=== PATIENT | female | born 1985 | race Hispanic/Latino ===

== ENCOUNTER 2018-12-05 20:35 | Emergency (ER) | payer BC ==
[~2018-12-05] VITALS: Ht 149.9 cm; Wt 64.4 kg
--- OUTSIDE RECORDS SUMMARY | 2018-12-05 20:38 | XMS REPORT | Continuity of Care Document ---
Author Author [facility] [place] Address Unknown Phone Unavailable Care Team Providers Care Space Sciences Director Name Role Phone Tommie SALMERON, Lola AVENDAÑO Unavailable Encounters Encounter Performer Location Date Office Visit Lola Reilly MD [facility] [place] - [facility] Feb 19, 2012 Allergies, Adverse Reactions, Alerts Type Substance Reaction Status Drug allergy TRAMADOL Active Problems Problem Effective Dates Problem Status CELLULITIS AND ABSCESS OF OTHER SPECIFIED SITE Feb 19, 2012 Active Procedures Date Description Comments Feb 19, 2012 smoking status current Feb 19, 2012 genitourinary review of systems, E&M Others: Pain from incision site site ( transverse suprapubic) Medications Medication Instructions Start Date Status CELEXA 10 MG TABS Daily Feb 19, 2012 Active VALIUM 5 MG TABS Daily Feb 19, 2012 Active BACTRIM DS 800-160 MG TABS 1 PO BID Feb 19, 2012 Active Vital Signs Date Description Test Result Feb 19, 2012 height E&M - 8302-2 HEIGHT 58 in Feb 19, 2012 weight E&M - 3141-9 WEIGHT 150.80 lb Feb 19, 2012 respiratory rate E&M - 9279-1 RESP RATE 18 /min Feb 19, 2012 temperature E&M TEMPERATURE 98.5 deg f Feb 19, 2012 blood pressure, systolic - 8480-6 BP SYSTOLIC 105 mm Hg Feb 19, 2012 blood pressure, diastolic - 8462-4 BP DIASTOLIC 64 mm Hg Feb 19, 2012 pulse rate E&M - 8867-4 PULSE RATE 96 /min
--- OUTSIDE RECORDS SUMMARY | 2018-12-05 20:38 | XMS REPORT ---
Author Author [facility] Address Unknown Phone Unavailable Care Team Providers Care Assembly Line Machine Operator Name Role Phone Unavailable Unavailable Problems This patient has no known problems. Allergies, Adverse Reactions, Alerts This patient has no known allergies or adverse reactions. Medications This patient has no known medications. Encounters Start Date/Time End Date/Time Encounter Type Admission Type Attending [facility] Care Department Encounter ID 2018-11-17 12:18:00 2018-11-17 12:18:00 Emergency E [id number] 2018-11-16 17:01:00 2018-11-16 17:01:00 Emergency E [id number] 2018-10-29 01:43:00 2018-10-29 01:43:00 Emergency E [id number]
--- OUTSIDE RECORDS SUMMARY | 2018-12-05 20:38 | XMS REPORT | Continuity of Care Document ---
Author Author [facility] [place] Address Unknown Phone Unavailable Care Team Providers Care Welder Tack Name Role Phone Tommie SALMERON, Lola AVENDAÑO Unavailable Encounters Encounter Performer Location Date Lab Report Lola Reilly MD [facility] [place] - [facility] Feb 08, 2012 Allergies, Adverse Reactions, Alerts Type Substance [...]
--- OUTSIDE RECORDS SUMMARY | 2018-12-05 20:38 | XMS REPORT | Continuity of Care Document ---
Author Author [facility] [place] Address Unknown Phone Unavailable Care Team Providers Care Feed House Supervisor Name Role Phone Gerardo Moran MD, PP Unavailable Insurance Providers Payer name Policy type / Coverage type Policy ID Covered constitution party ID Policy [facility] F[facility]U Encounters Encounter Performer Location Date Lab Report Gerardo Moran MD [facility] Apr 30, 2013 Allergies, Adverse Reactions, Alerts Type Substance Reaction Status Drug allergy TRAMADOL Active Problems Problem Effective Dates Problem Status CELLULITIS AND ABSCESS OF OTHER SPECIFIED SITE Feb 19, 2012 Active Procedures Date Description Comments Feb 19, 2012 smoking status current Medications Medication Instructions Start Date Status CELEXA [...]
--- OUTSIDE RECORDS SUMMARY | 2018-12-05 20:38 | XMS REPORT | Continuity of Care Document ---
Author Author [facility] [place] Address Unknown Phone Unavailable Care Team Providers Care Switch Technician Name Role Phone Gerardo Moran MD, PP Unavailable Encounters Encounter Performer Location Date Lab Report Gerardo Moran MD [facility] [place] - [facility] Feb 08, 2012 Allergies, Adverse Reactions, Alerts [...]
--- OUTSIDE RECORDS SUMMARY | 2018-12-05 20:39 | XMS REPORT | Clinical Summary ---
Author Author [facility]ang [facility]anda[facility] Organization [facility] Address Unknown Phone Unavailable Care Team Providers Care Template Fitter Name Role Phone Mohit Jaime MD PCP Allergies Comments Active Allergy Reactions Severity Noted Date Seafood only makes her sleepy, no real allergy per patient Other Food 09/21/2016 Medications End Date Status Medication Sig Dispensed Refills Start Date Active pregabalin (LYRICA) 75 MG Take 75 mg by 0 capsule mouth 2 (two) times a day. 05/09/2018 Discontinued HYDROcodone-acetaminophen Take 0.5 0 (NORCO) 10-325 mg per tablets by tablet mouth every 6 (six) hours as needed for moderate pain. 05/09/2018 Discontinued metFORMIN (GLUCOPHAGE) Take 500 mg 0 500 mg tablet by mouth 2 (two) times a day with meals. 12/17/2017 metroNIDAZOLE (FLAGYL) Take 1 tablet 14 tablet 0 500 MG tablet (500 mg 8 total) by mouth 2 (two) times a day for 7 days. 01/09/2018 dicyclomine (BENTYL) 20 Take 1 tablet 20 tablet 0 mg tablet (20 mg total) 8 by mouth 2 (two) times a day as needed (abdominal pain) for up to 30 days. 04/29/2018 butalbital-acetaminophen- Take 1 tablet 15 tablet 0 caff (ESGIC) 50-325-40 mg by mouth 8 per tablet every 6 (six) hours as needed for headaches for up to 30 days. 05/09/2018 Discontinued clonAZEPAM (KlonoPIN) 0.5 Take 0.5 10 tablet 0 MG tablet tablets (0.25 8 mg total) by mouth 2 (two) times a day as needed for anxiety for up to 5 days. 05/14/2018 clonAZEPAM (KlonoPIN) 0.5 Take 0.5 10 tablet 0 MG tablet tablets (0.25 8 mg total) by mouth 2 (two) times a day as needed for anxiety for up to 5 days. 05/25/2018 keTOROlac (TORadol) 10 mg Take 1 tablet 20 tablet 0 tablet (10 mg total) 8 by mouth every 6 (six) hours as needed for moderate pain for up to 5 days. Active Problems Problem Noted Date Exertional chest pain 05/09/2018 Acute cholecystitis due to biliary calculus 09/07/2017 Encounters Care Team Description Date Type Specialty Morenita Peterson MD Chest pain, unspecified type (Primary Dx); Anxiety 05/20/2018 Emergency Emergency Medicine Shaila Covington DO Jabbour, Joseph Michel, DO Exertional chest pain (Primary Dx) 05/09/2018 Emergency General Internal Medicine Shaila Covington DO 05/09/2018 Hospital Radiology Encounter Abby Vitale MD 03/30/2018 Hospital Radiology Encounter Abby Vitale MD Headache in front of head (Primary Dx) 03/30/2018 Emergency Emergency Medicine Aj Morocho MD Pain of upper abdomen (Primary Dx) 01/01/2018 Emergency Emergency Medicine Abby Vitale MD 12/10/2017 Hospital Radiology Encounter Abby Vitale MD Generalized abdominal pain (Primary Dx); Cyst of left ovary; Bacterial vaginosis 12/09/2017 Emergency Emergency Medicine - 12/10/2017 after 12/04/2017 Immunizations Name Dates Previously Given Next Due FLUCELVAX QUAD PF (0.5mL 05/09/2018 syringe) Social History Date Tobacco Use Types Packs/Day Years Used Current Some Day Smoker Smokeless Tobacco: Never Used Alcohol Use Drinks/Week oz/Week Comments Yes occasional Sex Assigned at Date Recorded Not on file Industry Job Start Date Occupation Not on file Not on file Not on file Travel End Travel History Travel Start No recent travel history available. Last Filed Vital Signs Time Taken Vital Sign Reading 05/20/2018 7:00 PM CDT Blood Pressure 114/62 05/20/2018 7:00 PM CDT Pulse 63 05/20/2018 6:45 PM CDT Temperature 36.9 C (98.5 F) 05/20/2018 7:00 PM CDT Respiratory Rate 24 05/20/2018 7:00 PM CDT Oxygen Saturation 98% - Inhaled Oxygen - Concentration 05/09/2018 2:50 AM CDT Weight 67.5 kg (148 lb 14.4 oz) 05/20/2018 5:46 PM CDT Height 149.9 cm (4' 11") 05/09/2018 2:50 AM CDT Body Mass Index 30.07 Plan of Treatment Health Maintenance Due Date Last Done Comments CERVICAL CANCER SCREENING 2008 INFLUENZA VACCINE 03/02/2019 05/09/2018, 04/23/2015 Procedures Comments Procedure Name Priority Date/Time Associated Diagnosis ECG ED PRELIMINARY Routine 05/20/2018 INTERPRETATION 7:34 PM CDT XR CHEST 2 VW STAT 05/20/2018 6:33 PM CDT ESTIMATED GFR STAT 05/20/2018 6:00 PM CDT HC COMPLETE BLD COUNT STAT 05/20/2018 W/AUTO DIFF 6:00 PM CDT CREATINE KINASE, TOTAL STAT 05/20/2018 (CPK) 6:00 PM CDT TROPONIN STAT 05/20/2018 6:00 PM CDT BASIC METABOLIC PANEL STAT 05/20/2018 6:00 PM CDT ECG 12-LEAD STAT 05/20/2018 5:49 PM CDT THYROID STIMULATING Routine 05/09/2018 HORMONE 10:10 AM CDT D-DIMER STAT 05/09/2018 10:10 AM CDT ECG 12-LEAD Routine 05/09/2018 8:28 AM CDT TROPONIN Timed 05/09/2018 7:40 AM CDT TROPONIN Routine 05/09/2018 3:38 AM CDT ESTIMATED GFR Routine 05/09/2018 3:38 AM CDT COMPREHENSIVE METABOLIC Routine 05/09/2018 PANEL 3:38 AM CDT HC COMPLETE BLD COUNT Routine 05/09/2018 W/AUTO DIFF 3:38 AM CDT LIPID PANEL Routine 05/09/2018 3:38 AM CDT ECG 12-LEAD Routine 05/09/2018 3:35 AM CDT HCG QUALITATIVE, URINE STAT 05/09/2018 SCREEN 1:08 AM CDT XR CHEST 1 VW PORTABLE STAT 05/09/2018 12:46 AM CDT ESTIMATED GFR STAT 05/09/2018 12:25 AM CDT TROPONIN, I-STAT STAT 05/09/2018 12:25 AM CDT CREATINE KINASE, TOTAL STAT 05/09/2018 (CPK) 12:25 AM CDT PROTHROMBIN TIME WITH STAT 05/09/2018 INR, I-STAT 12:25 AM CDT COMPREHENSIVE METABOLIC STAT 05/09/2018 PANEL 12:25 AM CDT HC COMPLETE BLD COUNT STAT 05/09/2018 W/AUTO DIFF 12:25 AM CDT ECG ED PRELIMINARY Routine 05/09/2018 INTERPRETATION 12:19 AM CDT ECG 12-LEAD STAT 05/09/2018 12:[address] HEAD WO CONTRAST STAT 03/30/2018 7:38 PM CDT HCG QUALITATIVE, URINE STAT 03/30/2018 SCREEN 7:20 PM CDT HCG QUALITATIVE, URINE STAT 01/01/2018 SCREEN 2:25 AM CDT URINALYSIS STAT 01/01/2018 2:25 AM CDT ZZESTIMATED GFR STAT 01/01/2018 2:10 AM CDT AMYLASE LEVEL STAT 01/01/2018 2:10 AM CDT COMPREHENSIVE METABOLIC STAT 01/01/2018 PANEL 2:10 AM CDT HC COMPLETE BLD COUNT STAT 01/01/2018 W/AUTO DIFF 2:[address] ABDOMEN PELVIS W STAT 12/10/2017 CONTRAST 12:51 AM CDT US PELVIC TRANSVAGINAL STAT 12/09/2017 11:29 PM CDT US PELVIC TRANSABDOMINAL STAT 12/09/2017 11:29 PM CDT CHLAMYDIA BY PROBETEC Routine 12/09/2017 10:15 PM CDT GC BY PROBETEC Routine 12/09/2017 10:15 PM CDT WET PREP Routine 12/09/2017 10:15 PM CDT ZZESTIMATED GFR STAT 12/09/2017 9:55 PM CDT AMYLASE LEVEL STAT 12/09/2017 9:55 PM CDT COMPREHENSIVE METABOLIC STAT 12/09/2017 PANEL 9:55 PM CDT HC COMPLETE BLD COUNT STAT 12/09/2017 W/AUTO DIFF 9:55 PM CDT HCG QUALITATIVE, URINE STAT 12/09/2017 SCREEN 9:40 PM CDT URINALYSIS STAT 12/09/2017 9:40 PM CDT after 12/04/2017 Results * ECG ED Preliminary Interpretation - NOT AN ORDER (05/20/2018 7:34 PM CDT) Only the most recent of 2 results within the time period is included. Narrative Performed At Morenita Peterson MD 05/20/20189:35 PM ECG ED Preliminary Interpretation - Not an Order Performed by: MORENITA PETERSON Authorized by: MORENITA PETERSON ECG reviewed by ED Physician in the absence of a electrophysiology technologist: yes Interpretation: Interpretation: normal Interpretation comment:NSR Rate: ECG rate:65 bpm ECG rate assessment: normal Rhythm: Rhythm: sinus rhythm Ectopy: Ectopy: none QRS: QRS axis:Normal QRS intervals:Normal (92 ms) Conduction: Conduction: normal ST segments: ST segments:Normal T waves: T waves: normal Comments: MD interval: 166 ms QT/QTc: 384/399 ms * XR Chest 2 Vw (05/20/2018 6:33 PM CDT) Narrative Performed At EXAMINATION:XR CHEST 2 VW RADIANT CLINICAL HISTORY:chest pain COMPARISON:May 09, 2018 IMPRESSION: The lungs are clear. The heart is not enlarged. The bony structures are within normal limits. [facility]-[id number] Procedure Note Hm Interface, Radiology Results Incoming - 05/20/2018 6:38 PM CDT EXAMINATION: XR CHEST 2 VW CLINICAL HISTORY: chest pain COMPARISON: May 09, 2018 IMPRESSION: The lungs are clear. The heart is not enlarged. The bony structures are within normal limits. [facility]-[id number] Performing Organization Address City/[facility]/Zipcode Phone Number [facility] [address] [facility] [place] [address] * Estimated GFR (05/20/2018 6:00 PM CDT) Only the most recent of 3 results within the time period is included. Estimated GFR >=90 mL/min/1.73 m2 [facility] DEPARTMENT OF Comment: PATHOLOGY AND CatergoryUnitsInte GENOMIC MEDICINE rpretation G1 >=90 Normal or high G2 60-89Mildly decreased G5m13-16 Mildly to moderately decreased [id number] Moderately to severely decreased G4 15-29Severely decreased G5 <15Kidney failure The eGFR was calculated using the Chronic Kidney Disease Epidemiology Collaboration (CKD-EPI) equation. Interpretation is based on recommendations of the National Kidney Foundation-Kidney Disease Outcomes Quality Initiative (NKF-KDOQI) published in 2014. Specimen Plasma specimen Performing Organization Address City/State/Zipcode Phone Number [facility] [phone] [place] [address] PATHOLOGY AND GENOMIC MEDICINE * Troponin (05/20/2018 6:00 PM CDT) Only the most recent of 3 results within the time period is included. Troponin <0.10 0.00 - 0.10 ng/mL [facility] DEPARTMENT OF Comment: PATHOLOGY AND 0.11 - 1.49 GENOMIC MEDICINE ng/mlMay indicate increased risk of acute coronary syndrome. >=1.5 ng/ml Consistent with acute myocardial infarction. The diagnostic value of a single normal or non-diagnostic result is questionable.Serial samples at 2-6 hour intervals are required to rule out acute myocardial injury. Specimen Plasma specimen Performing Organization Address City/State/Zipcode Phone [place] [facility] [place] [address] [place] [address] PATHOLOGY AND GENOMIC MEDICINE * CBC with platelet and differential (05/20/2018 6:00 PM CDT) Only the most recent of 5 results within the time period is included. WBC 13.17 (H) 4.50 - 11.00 k/uL [facility] DEPARTMENT OF PATHOLOGY AND GENOMIC MEDICINE RBC 4.22 4.20 - 5.50 m/uL [facility] DEPARTMENT OF PATHOLOGY AND GENOMIC MEDICINE HGB 11.7 (L) 12.0 - 16.0 g/dL [facility] DEPARTMENT OF PATHOLOGY AND GENOMIC MEDICINE HCT 35.6 (L) 37.0 - 47.0 % [facility] DEPARTMENT OF PATHOLOGY AND GENOMIC MEDICINE MCV 84.4 82.0 - 100.0 fL [facility] DEPARTMENT OF PATHOLOGY AND GENOMIC MEDICINE MCH 27.7 27.0 - 34.0 pg [facility] DEPARTMENT OF PATHOLOGY AND GENOMIC MEDICINE MCHC 32.9 31.0 - 37.0 g/dL [facility] DEPARTMENT OF PATHOLOGY AND GENOMIC MEDICINE RDW - SD 43.4 37.0 - 55.0 fL [facility] DEPARTMENT OF PATHOLOGY AND GENOMIC MEDICINE MPV 9.2 8.8 - 13.2 fL [facility] DEPARTMENT OF PATHOLOGY AND GENOMIC MEDICINE Platelet count 307 150 - 400 k/uL [facility] DEPARTMENT OF PATHOLOGY AND GENOMIC MEDICINE Neutrophils 61.2 39.0 - 69.0 % [facility] DEPARTMENT OF PATHOLOGY AND GENOMIC MEDICINE Lymphocytes 28.4 25.0 - 45.0 % [facility] DEPARTMENT OF PATHOLOGY AND GENOMIC MEDICINE Monocytes 6.6 0.0 - 10.0 % [facility] DEPARTMENT OF PATHOLOGY AND GENOMIC MEDICINE Eosinophils 2.7 0.0 - 5.0 % [facility] DEPARTMENT OF PATHOLOGY AND GENOMIC MEDICINE Basophils 0.6 0.0 - 1.0 % [facility] DEPARTMENT OF PATHOLOGY AND GENOMIC MEDICINE Immature granulocytes 0.5 0.0 - 1.0 % [facility] DEPARTMENT OF PATHOLOGY AND GENOMIC MEDICINE Specimen Blood Performing Organization Address City/[facility]/Zipcode Phone Number [facility] [place]MENT [place] [id number] [place] [address] PATHOLOGY AND GENOMIC MEDICINE * Creatine kinase, total (CPK) (05/20/2018 6:00 PM CDT) Only the most recent of 2 results within the time period is included. Creatine kinase 88 35 - 200 U/L [facility] DEPARTMENT OF PATHOLOGY AND GENOMIC MEDICINE Specimen Plasma specimen Performing Organization Address [facility] Phone Number [facility] DEPARTMENT [place] [address] PATHOLOGY AND GENOMIC MEDICINE * Basic metabolic panel (05/20/2018 6:00 PM CDT) Sodium 139 135 - 148 mEq/L [facility] DEPARTMENT OF PATHOLOGY AND GENOMIC MEDICINE Potassium 3.6 3.5 - 5.0 mEq/L [facility] DEPARTMENT OF PATHOLOGY AND GENOMIC MEDICINE Chloride 103 99 - 109 mEq/L [facility] DEPARTMENT OF PATHOLOGY AND GENOMIC MEDICINE CO2 24 24 - 31 mEq/L [facility] DEPARTMENT OF PATHOLOGY AND GENOMIC MEDICINE Anion gap 12@ANIO 7 - 15 mEq/L [facility] DEPARTMENT OF PATHOLOGY AND GENOMIC MEDICINE BUN 10 8 - 24 mg/dL [facility] DEPARTMENT OF PATHOLOGY AND GENOMIC MEDICINE Creatinine 0.50 0.50 - 0.90 mg/dL [facility] DEPARTMENT OF PATHOLOGY AND GENOMIC MEDICINE Glucose 99 65 - 99 mg/dL [facility] DEPARTMENT OF PATHOLOGY AND GENOMIC MEDICINE Calcium 9.4 8.6 - 10.6 mg/dL [facility] DEPARTMENT OF PATHOLOGY AND GENOMIC MEDICINE Specimen Plasma specimen Performing Organization Address [facility] Phone Number [facility] [place]MENT [place] [id number] [place] [address] PATHOLOGY AND GENOMIC MEDICINE * ECG 12 lead (05/20/2018 5:49 PM CDT) Only the most recent of 4 results within the time period is included. Ventricular rate 65 [facility] Atrial rate 65 [facility] MD interval 166 [facility] QRSD interval 92 [facility] QT interval 384 [facility] QTC interval 399 [facility] P axis 1 37 [facility] QRS axis 1 -16 [facility] T wave axis 30 [facility] EKG impression Normal sinus rhythm-Normal [facility] MUSE ECG-In automated comparison with ECG of 09-MAY-2018 08:28,-No significant change was found- Performing Organization Address City/State/Zipcode Phone Number [facility] MUSE [address] [place] [address] * D-dimer (05/09/2018 10:10 AM CDT) D-dimer 0.35 0.00 - 0.40 ug/mL FEU [facility] DEPARTMENT OF Comment: PATHOLOGY AND Units are ug/ml Fibrinogen Andigilog [facility] Equivalent Unit. When combined with low clinical probability, D-dimer results of less than 0.5 ug/ml FEU have a good negativepredictive value in excluding PE or DVT. For D-dimer results greater than 0.5ug/ml FEU further testing is indicated if PE or DVT is suspectedclinically. Elevated D-dimer results have been reported in DVT, PE, and DIC cases and may indicate the presence of a clot. D-dimer results may be elevated due to old age, , inflammatory diseases, trauma, post-operative states, sepsis, and malignancies. Specimen Blood Performing Organization Address City/[facility] Centercode Phone Number [facility] [place] [address] [address] [place] [address] PATHOLOGY AND Andigilog MEDICINE * Thyroid stimulating hormone (05/09/2018 10:10 AM CDT) TSH 0.88 0.55 - 4.78 uIU/mL [facility] DEPARTMENT OF PATHOLOGY AND And[employer]ilog MEDICINE Specimen Serum Performing Organization Address [facility] Cent[facility]oid Phone Number [facility] [place] [id number] [place] [address]. [place] [id number] PATHOLOGY AND Andigilog MEDICINE * Lipid panel (05/09/2018 3:38 AM CDT) Cholesterol 107 50 - 200 mg/dL [facility] DEPARTMENT OF PATHOLOGY AND [employer] MEDICINE Triglycerides 109 50 - 150 mg/dL [facility] DEPARTMENT OF PATHOLOGY AND And[employer]ilog MEDICINE HDL cholesterol 33 (L) 40 - 60 mg/dL [facility] DEPARTMENT OF PATHOLOGY AND GENOMIC MEDICINE LDL cholesterol 64Comment: Result obtained by mg/dL [facility] DEPARTMENT OF direct LDL measurement PATHOLOGY AND And[employer] MEDICINE Lipid panel See below [facility] DEPARTMENT OF interpretation Comment: PATHOLOGY AND Total Cholesterol GENOMIC MEDICINE (mg/dL) LDL Cholesterol (mg/dL) <200 Desirable <100 Optimal 200-239Borderline -[id number] 29Near or above optimal >=240High 130-159Borderline- high 160-189High >=190Very high HDL Cholesterol (mg/dL) Triglycerides (mg/dL) <40Low <150 Normal >=60 High 150-199Borderline- high 200-499High >=500Very high Risk Catergories that modify LDL goals. Risk Catergories LDL goal (mg/dL) CHD and CHD risk equivalent <100 (10-year risk >20%) Multiple (2+) risk factors <130 (10-year risk=<20%) 0-1 risk factors <160 (<10-year risk) Defining levels of lipids in metabolic syndrome Triglycerides >=150 mg/dL HDL Cholesterol Men <40 mg/dL Women <50 mg/dL Non-HDL cholesterol is a second target for therapy in persons with high triglycerides (>=200 mg/dL) Specimen Plasma specimen Performing Organization Address City/State/Zipcode Phone [place] [facility] [place] [place] [address] [place] [address] PATHOLOGY AND Andigilog MEDICINE * Comprehensive metabolic panel (05/09/2018 3:38 AM CDT) Only the most recent of 4 results within the time period is included. Sodium 140 135 - 148 mEq/L [facility] PATHOLOGY AND GENOMIC MEDICINE Potassium 3.4 (L) 3.5 - 5.0 mEq/L [facility] PATHOLOGY AND GENOMIC MEDICINE Chloride 107 99 - 109 mEq/L [facility] PATHOLOGY AND GENOMIC MEDICINE CO2 22 (L) 24 - 31 mEq/L [facility] PATHOLOGY AND GENOMIC MEDICINE Anion gap 11@ANIO 7 - 15 mEq/L [facility] PATHOLOGY AND GENOMIC MEDICINE BUN 7 (L) 8 - 24 mg/dL [facility] PATHOLOGY AND GENOMIC MEDICINE Creatinine 0.50 0.50 - 0.90 mg/dL [facility] PATHOLOGY AND GENOMIC MEDICINE Glucose 116 (H) 65 - 99 mg/dL [facility] PATHOLOGY AND GENOMIC MEDICINE Calcium 8.0 (L) 8.6 - 10.6 mg/dL [facility] PATHOLOGY AND GENOMIC MEDICINE Protein 6.2 (L) 6.3 - 8.2 g/dL [facility] PATHOLOGY AND GENOMIC MEDICINE Albumin 2.9 (L) 3.5 - 5.0 g/dL [facility] PATHOLOGY AND GENOMIC MEDICINE A/G ratio 0.9 0.7 - 3.8 [facility] PATHOLOGY AND GENOMIC MEDICINE Alkaline phosphatase 39 30 - 115 U/L [facility] OF PATHOLOGY AND GENOMIC MEDICINE AST 44 15 - 46 U/L [facility] PATHOLOGY AND GENOMIC MEDICINE ALT 21 10 - 55 U/L [facility] PATHOLOGY AND Andigilog MEDICINE Total bilirubin <0.3 0.2 - 1.2 mg/dL [facility] DEPARTMENT OF PATHOLOGY AND GENOMIC MEDICINE Specimen Plasma specimen Performing Organization Address City/[facility] Phone Number [facility] [place] [phone] [place] [address] PATHOLOGY AND GENOMIC MEDICINE * hCG qualitative, urine screen (05/09/2018 1:08 AM CDT) Only the most recent of 4 results within the time period is included. hCG qualitative, urine NegativeComment: Sensitivity DEPARTMENT OF of HCG test: 25 mIU/mL PATHOLOGY AND [facility]IN[facility] Specimen Urine Performing Organization Address [facility] [place] [address] [address] [place] [address] PATH[facility] * XR Chest 1 Vw Portable (05/09/2018 12:46 AM CDT) Narrative Performed At Examination:XR CHEST 1 VW PORTABLE RADIANT Clinical History:chest pain Comparison: None. Technique: Single frontal view of the chest is obtained. Findings: The lungs are free of infiltrate. The heart size is normal. No pleural effusion is seen. Impression: No active cardiopulmonary disease identified. [facility]-[id number] Procedure Note Interface, Radiology Results Incoming - 05/09/2018 12:53 AM CDT Examination: XR CHEST 1 VW PORTABLE Clinical History: chest pain Comparison: None. Technique: Single frontal view of the chest is obtained. Findings: The lungs are free of infiltrate. The heart size is normal. No pleural effusion is seen. Impression: No active cardiopulmonary disease identified. [facility]-[id number] Performing Organization Address [facility] Phone Number [facility] [address] [place] [address] * Troponin, I-Stat (05/09/2018 12:25 AM CDT) Troponin, I-Stat 0.00 0.00 - 0.08 ng/mL DEPARTMENT OF Comment: PATHOLOGY AND 0.09 - 1.49 GENOMIC MEDICINE, [facility] indicate increased risk of EMERGENCY CARE acute CENTER coronary syndrome. >=1.5 ng/ml Consistent with acute myocardial infarction. The diagnostic value of a single normal or non-diagnostic result is questionable.Serial samples at 2-6 hour intervals are required to rule out acute myocardial injury. Specimen Plasma specimen Performing Organization Address [facility]/[place] [address] [address] [place] [address] PATHOLOG[facility] * Prothrombin time with INR, I-Stat (05/09/2018 12:25 AM CDT) POC prothrombin time 17.5 (H) 11.0 - 14.5 sec [facility] POC INR 1.5 DEPARTMENT OF Comment: PATHOLOGY AND The International Normalized GENOMIC MEDICINE, Ratio (INR) is a therapeutic [facility] monitoring tool for patients EMERGENCY CARE who are stable on oral CENTER vitamin K antagonist therapy. An INR of 2.0-3.0 is suggested for deep vein thrombosis/pulmonary embolism. An INR of 2.5-3.5 (high dose) is suggested for some patients with mechanical heart valves) Specimen Blood Performing Organization Address [facility] [place] Number [place] [address] [address] [place] [address] PATH[facility] * CT Head Wo Contrast (03/30/2018 7:38 PM CDT) Narrative Performed At EXAMINATION: CT HEAD WO CONTRAST RADIANT COMPARISON: None CLINICAL HISTORY headache. TECHNIQUE: Non-contrast CT scan of the head with thin-section contiguous transaxial images from the skull base to the vertex. CT scans are performed using radiation dose reduction techniques. Technical factors are evaluated and adjusted to ensure appropriate moderation of exposure. Automated dose management technology is applied to adjust radiation exposure while achieving a highly diagnostic quality image. FINDINGS: Nonenhanced emergency cranial CT was performed at approximately 1950 hours. The ventricles and subarachnoid spaces are mildly dilated. There is no definite acute edema or hemorrhage or mass effect or midline shift or extra-axial lesion. Bone settings demonstrate the calvarium to be intact. There is mucosal thickening in the ethmoid air cells IMPRESSION: Mild age-appropriate involutional changes without focal acute abnormalities. Bilateral ethmoid air cells opacified by mucosal thickening. Please correlate clinically for sinusitis. [facility]-[id number] Procedure Note Interface, Radiology Results Incoming - 03/30/2018 7:45 PM CDT EXAMINATION: CT HEAD WO CONTRAST COMPARISON: None CLINICAL HISTORY headache. TECHNIQUE: Non-contrast CT scan of the head with thin-section contiguous transaxial images from the skull base to the vertex. CT scans are performed using radiation dose reduction techniques. Technical factors are evaluated and adjusted to ensure appropriate moderation of exposure. Automated dose management technology is applied to adjust radiation exposure while achieving a highly diagnostic quality image. FINDINGS: Nonenhanced emergency cranial CT was performed at approximately 1950 hours. The ventricles and subarachnoid spaces are mildly dilated. There is no definite acute edema or hemorrhage or mass effect or midline shift or extra-axial lesion. Bone settings demonstrate the calvarium to be intact. There is mucosal thickening in the ethmoid air cells IMPRESSION: Mild age-appropriate involutional changes without focal acute abnormalities. Bilateral ethmoid air cells opacified by mucosal thickening. Please correlate clinically for sinusitis. [facility]-[id number] Performing Organization Address City/State/Zipcode Phone Number [facility] [address] [place] [address] * Urinalysis (01/01/2018 2:25 AM CDT) Only the most recent of 2 results within the time period is included. Glucose, UA Negative Negative [facility] Bilirubin, UA Negative Negative [facility] Ketones, UA Negative Negative [facility] Specific gravity, UA 1.015 1.001 - 1.035 [facility] Blood, UA Large (A) Negative [facility] pH, UA 7.0 5.0 - 8.5 [facility] Protein, UA Negative Negative [facility] Urobilinogen, UA <2.0 <2.0 [facility] Nitrite, UA Negative Negative [facility] Leukocyte esterase, UA Negative Negative [facility] Color, UA Yellow [facility] Appearance, UA Clear [facility]OLOG[facility] Specimen Urine Performing Organization Address City/State/[place] [phone] [place] [address] PATHOLOGY [facility] * Estimated GFR (01/01/2018 2:10 AM CDT) Only the most recent of 2 results within the time period is included. GFR Non Af Amer >90 mL/min/1.73 m2 DEPARTMENT OF PATHOLOGY AND GENOMIC MEDICINE, [facility] GFR Af Amer >90 mL/min/1.73 m2 DEPARTMENT OF Comment: PATHOLOGY AND Chronic kidney disease: <60 [facility], mL/min/1.73m2 [facility] Kidney failure: <15 [facility] mL/min/1.73m2 CENTER The estimated GFR is calculated from the IDMS-traceable Modification of Diet in Renal Disease Equation. The accuracy of the calculation is poor when the creatinine is normal. Calculated values >90 mL/min/1.73m2 are not reported. This equation has not been validated in children (<18 years), women, the elderly (>70 years), or ethnic groups other than Caucasians and Americans. Specimen Plasma specimen Performing Organization Address City/State/[place] [phone] [address] PATHOLOGY AND [facility] * Amylase level (01/01/2018 2:10 AM CDT) Only the most recent of 2 results within the time period is included. Amylase 23 14 - 97 U/L [facility] Specimen Plasma specimen Performing Organization Address City/[facility] [place] Number [place] [phone] [address] PATHOLOGY AND [facility] * CT Abdomen Pelvis W Contrast (12/10/2017 12:51 AM CDT) Narrative Performed At CT ABDOMEN PELVIS W CONTRAST RADIANT CLINICAL INDICATION: abdominal pain TECHNIQUE:Multidetector CT imaging of the abdomen and pelvis was performed following the intravenous administration of iodinated contrast with multiplanar reconstructions.CT imaging was performed with iterative reconstruction technique and/or automated exposure control to reduce radiation dose. COMPARISON:04/28/2017. FINDINGS: LOWER THORAX:Clear. LIVER:Normal. BILIARY:There are surgical changes related to cholecystectomy. There is minimal intrahepatic biliary ductal dilation, likely secondary to the postcholecystectomy state. SPLEEN:Normal. PANCREAS:Normal. ADRENALS:Normal. KIDNEYS:No mass or hydronephrosis. GI:Large and small bowel are normal in caliber.There are no inflammatory changes.Appendix is visualized and appears normal. VASCULAR:Unremarkable LYMPH NODES:No enlarged lymph nodes in the abdomen or pelvis. PELVIS:The urinary bladder and uterus are normal in appearance. There is a 2.8 x 1.8 cm cystic lesion within the left ovary. BONES:There are no acute osseous abnormalities. OTHER:There is no ascites or pneumoperitoneum. There is a small, fat-containing ventral hernia. IMPRESSION: No acute intra-abdominal abnormality. [id number] Procedure Note Interface, Radiology Results Incoming - 12/10/2017 1:[address] ABDOMEN PELVIS W CONTRAST CLINICAL INDICATION: abdominal pain TECHNIQUE: Multidetector CT imaging of the abdomen and pelvis was performed following the intravenous administration of iodinated contrast with multiplanar reconstructions. CT imaging was performed with iterative reconstruction technique and/or automated exposure control to reduce radiation dose. COMPARISON: 04/28/2017. FINDINGS: LOWER THORAX: Clear. LIVER: Normal. BILIARY: There are surgical changes related to cholecystectomy. There is minimal intrahepatic biliary ductal dilation, likely secondary to the postcholecystectomy state. SPLEEN: Normal. PANCREAS: Normal. ADRENALS: Normal. KIDNEYS: No mass or hydronephrosis. GI: Large and small bowel are normal in caliber. There are no inflammatory changes. Appendix is visualized and appears normal. VASCULAR: Unremarkable LYMPH NODES: No enlarged lymph nodes in the abdomen or pelvis. PELVIS: The urinary bladder and uterus are normal in appearance. There is a 2.8 x 1.8 cm cystic lesion within the left ovary. BONES: There are no acute osseous abnormalities. OTHER: There is no ascites or pneumoperitoneum. There is a small, fat- containing ventral hernia. IMPRESSION: No acute intra-abdominal abnormality. [id number] Performing Organization Address City/State/Zipcode Phone Number [facility] [address] [place] [address] * US Pelvic Transabdominal (12/09/2017 11:29 PM CDT) Narrative Performed At EXAMINATION:[facility] CLINICAL HISTORY:Pelvic Pain COMPARISON:None. TECHNIQUE:Transabdominal and endovaginal sonographic images of the pelvis were obtained. Grayscale, color Doppler, and spectral waveform analysis of the ovarian vessels was performed. IMPRESSION: Uterus: The uterus is normal in size without focal mass. The uterus measures 8.6 x 3.9 x 5.0 cm in size. Endometrial stripe thickness: 0.5 cm, which is within normal limits. Right ovary: The right ovary measures 3.2 x 2.0 x 2.1 cm in size and demonstrates intraovarian Doppler flow. Left ovary: The left ovary measures 4.2 x 2.5 x 2.5 cm in size and demonstrates intraovarian Doppler flow. There is a 2.4 x 1.7 x 1.9 cm mildly echogenic lesion within the left ovary that shows no evidence of internal flow. This most likely represents a hemorrhagic ovarian cyst or endometrioma. If the patient's symptoms persist, further evaluation with a pelvic MRI or repeat pelvic ultrasound in 6-12 weeks is recommended. There is a small amount of free fluid in the pelvic cul-de-sac. [id number] Procedure Note [facility], Radiology Results Incoming - 12/09/2017 11:53 PM CDT EXAMINATION: US PELVIC TRANSABDOMINAL CLINICAL HISTORY: Pelvic Pain COMPARISON: None. TECHNIQUE:Transabdominal and endovaginal sonographic images of the pelvis were obtained. Grayscale, color Doppler, and spectral waveform analysis of the ovarian vessels was performed. IMPRESSION: Uterus: The uterus is normal in size without focal mass. The uterus measures 8.6 x 3.9 x 5.0 cm in size. Endometrial stripe thickness: 0.5 cm, which is within normal limits. Right ovary: The right ovary measures 3.2 x 2.0 x 2.1 cm in size and demonstrates intraovarian Doppler flow. Left ovary: The left ovary measures 4.2 x 2.5 x 2.5 cm in size and demonstrates intraovarian Doppler flow. There is a 2.4 x 1.7 x 1.9 cm mildly echogenic lesion within the left ovary that shows no evidence of internal flow. This most likely represents a hemorrhagic ovarian cyst or endometrioma. If the patient's symptoms persist, further evaluation with a pelvic MRI or repeat pelvic ultrasound in 6-12 weeks is recommended. There is a small amount of free fluid in the pelvic cul-de-sac. [id number] Performing Organization Address City/State/Zipcode Phone Number [facility] [address] [place] [address] * US Pelvic Transvaginal (12/09/2017 11:29 PM CDT) Narrative Performed At EXAMINATION:[facility] CLINICAL HISTORY:Pelvic Pain COMPARISON:None. TECHNIQUE:Transabdominal and endovaginal sonographic images of the pelvis were obtained. Grayscale, color Doppler, and spectral waveform analysis of the ovarian vessels was performed. IMPRESSION: Uterus: The uterus is normal in size without focal mass. The uterus measures 8.6 x 3.9 x 5.0 cm in size. Endometrial stripe thickness: 0.5 cm, which is within normal limits. Right ovary: The right ovary measures 3.2 x 2.0 x 2.1 cm in size and demonstrates intraovarian Doppler flow. Left ovary: The left ovary measures 4.2 x 2.5 x 2.5 cm in size and demonstrates intraovarian Doppler flow. There is a 2.4 x 1.7 x 1.9 cm mildly echogenic lesion within the left ovary that shows no evidence of internal flow. This most likely represents a hemorrhagic ovarian cyst or endometrioma. If the patient's symptoms persist, further evaluation with a pelvic MRI or repeat pelvic ultrasound in 6-12 weeks is recommended. There is a small amount of free fluid in the pelvic cul-de-sac. [id number] Procedure Note Interface, Radiology Results Incoming - 12/09/2017 11:53 PM CDT EXAMINATION: US PELVIC TRANSVAGINAL CLINICAL HISTORY: Pelvic Pain COMPARISON: None. TECHNIQUE:Transabdominal and endovaginal sonographic images of the pelvis were obtained. Grayscale, color Doppler, and spectral waveform analysis of the ovarian vessels was performed. IMPRESSION: Uterus: The uterus is normal in size without focal mass. The uterus measures 8.6 x 3.9 x 5.0 cm in size. Endometrial stripe thickness: 0.5 cm, which is within normal limits. Right ovary: The right ovary measures 3.2 x 2.0 x 2.1 cm in size and demonstrates intraovarian Doppler flow. Left ovary: The left ovary measures 4.2 x 2.5 x 2.5 cm in size and demonstrates intraovarian Doppler flow. There is a 2.4 x 1.7 x 1.9 cm mildly echogenic lesion within the left ovary that shows no evidence of internal flow. This most likely represents a hemorrhagic ovarian cyst or endometrioma. If the patient's symptoms persist, further evaluation with a pelvic MRI or repeat pelvic ultrasound in 6-12 weeks is recommended. There is a small amount of free fluid in the pelvic cul-de-sac. [id number] Performing Organization Address City/State/Zipcode Phone Number [address] [address] * GC By ProbeTe (12/09/2017 10:15 PM CDT) GC, ProbeTec Negative for Neisseria [facility] DEPARTMENT OF gonorrhoeae. PATHOLOGY AND Comment: GENOMIC MEDICINE Specimen Information Specimen Source: Cervical Specimen Site: Not otherwise specified Specimen Cervical - Not otherwise specified Performing Organization Address City/[facility]/Zipcode Phone Number [facility] DEPARTMENT OF [address] [place] [id number] PATHOLOGY AND GENOMIC MEDICINE * Chlamydia by ProbeTe (12/09/2017 10:15 PM CDT) [facility]lam[facility] for Chlamydia [facility] DEPARTMENT OF trachomatis. PATHOLOGY AND Comment: GENOMIC MEDICINE Specimen Information Specimen Source: Cervical Specimen Site: Not otherwise specified Specimen Cervical - Not otherwise specified Performing Organization Address [facility]/Zipcode Phone Number [facility] DEPARTMENT OF [address] [place] [phone] PATHOLOGY AND GENOMIC MEDICINE * Wet prep (12/09/2017 10:15 PM CDT) Wet prep result No Trichomonas vaginalis or [facility] DEPARTMENT OF budding yeast seen PATHOLOGY AND Moderate Clue cells GENOMIC MEDICINE Rare WBC's Comment: Specimen Information Specimen Source: Vaginal Specimen Site: Other Specimen Vaginal - Other- Detailed Description Required Performing Organization Address City/State/Zipcode Phone Number [facility] [place] [address] [place] [address] PATHOLOGY AND GENOMIC MEDICINE after 12/04/2017 Advance Directives Patient has advance care planning documents, and code status on file. For more i nformation, please contact: Quang Pino [address] [place] [phone] Date Inactivated Comments Code Status Date Activated 09/07/2017 6:38 PM Full Code 09/07/2017 6:12 AM Code Status decision reached by: Patient
--- NOTE | 2018-12-05 21:45 | Diagnostic Imaging Report ---
EXAMINATION: PA and lateral views of the chest. COMPARISON: None CLINICAL HISTORY: Chest pain DISCUSSION: Lines/tubes: None. Lungs: The lungs are well inflated and clear. No pneumonia or pulmonary edema. Pleura: No pleural effusion or pneumothorax. Heart and mediastinum: The cardiomediastinal silhouette is normal. Bones and soft tissues: No acute bony abnormalities. IMPRESSION: No acute cardiopulmonary abnormalities. Signed by: Dr. Rajat Martínez M.D. on 12/05/2018 9:42 PM
[2018-12-05 22:33] VITALS: BP 121/88
== END 2018-12-05 22:40 | disposition home or self-care (01) ==
LOC: ER 20:35
DX: R07.89 Other chest pain (principal); E11.9 Type 2 diabetes mellitus without complications; F41.9 Anxiety disorder, unspecified; M79.7 Fibromyalgia
CPT/HCPCS: 71046; 93005; 99283

== ENCOUNTER 2019-10-04 17:30 | Emergency (ER) | payer BC ==
[~2019-10-04] VITALS: Ht 149.9 cm; Wt 64.4 kg
[2019-10-04] MEDS ORDERED: IBUPROFEN 600 MG TAB PO STA (17:49)
[2019-10-04 18:01] VITALS: BP 120/83
[2019-10-04 18:08] LABS: STREPTOCOCCUS GRP A ANTIGEN NEGATIVE (NEGATIVE)
[2019-10-04 18:26] LABS: INFLUENZAE A&B ANTIGEN (RAPID) NEGATIVE (NEGATIVE)
== END 2019-10-04 19:16 | disposition home or self-care (01) ==
LOC: ER 17:30
DX: R50.9 Fever, unspecified (principal); R05 Cough; J11.1 Influenza due to unidentified influenza virus with other respiratory manifestations; E11.9 Type 2 diabetes mellitus without complications; F41.9 Anxiety disorder, unspecified
CPT/HCPCS: 83518; 87070; 87400; 99283